=== PATIENT | female | born 1985 | race American Indian/Alaskan Native ===

== ENCOUNTER 2016-10-12 10:56 | Outpatient (CLI) | payer MEDICAID ==
[2016-10-12 11:51] VITALS: BP 122/74
== END 2016-10-12 13:30 | disposition home or self-care (01) ==
LOC: TRG 10:56
PROVIDERS: ATTEND Obstetrics & Gynecology
DX: O47.03 False labor before 37 completed weeks of gestation, third trimester (principal); Z3A.40 40 weeks gestation of pregnancy
CPT/HCPCS: 59025